=== PATIENT | female | born 1985 | race Caucasian/White ===

== ENCOUNTER 2016-07-11 06:43 | Inpatient (IN) | payer MEDICAID ==
[~2016-07-11] VITALS: Ht 165.1 cm; Wt 79.8 kg
[2016-07-11] VITALS (11 sets, daily range): BP systolic 106–144; BP diastolic 63–85; Ht 165.1 cm; Wt 79.8 kg
[~2016-07-11 06:43] MED LIST: IBUPROFEN800 MG PO; PERCOCET 10/3251 TA1 PO; PRENATAL COMPLE1 TAB PO; VALTREX1000 MG PO
[2016-07-11] MEDS ORDERED: FERROUS SULFAT325 MG PO (07:25)
[2016-07-11] MEDS ORDERED: VALTREX500 MG PO (07:26)
[2016-07-11] MEDS ORDERED: TYLENOL PM1 TAB PO (07:26)
[2016-07-11] MEDS ORDERED: PERCOCET 5-3251 TAB PO (07:27)
[2016-07-11 07:55] LABS: HEMATOCRIT 36.1 % (36.0-48.0); MCH 29.9 pg (26.0-34.0); MCHC 33.2 g/dL (31.0-37.0); RBC 4.01 10x6/uL (4.00-5.40); RDW 19.1 % (11.5-14.5); WBC 11.1 10x3/uL (4.8-10.8)
[2016-07-11 08:00] LABS: UDS - AMPHET NEGATIVE QUAL (NEGATIVE); UDS - BARB NEGATIVE QUAL (NEGATIVE); UDS - BENZO NEGATIVE QUAL (NEGATIVE); UDS - COCAINE NEGATIVE QUAL (NEGATIVE); UDS - METH NEGATIVE QUAL (NEGATIVE); UDS - OPIATE NEGATIVE QUAL (NEGATIVE); UDS - PCP NEGATIVE QUAL (NEGATIVE); UDS - THC NEGATIVE QUAL (NEGATIVE)
[2016-07-11 08:29] LABS: APPEARANCE CLEAR (CLEAR); BILIRUBIN NEGATIVE (NEGATIVE); COLOR YELLOW (YELLOW); GLUCOSE NEGATIVE (NEGATIVE); KETONE MODERATE mg/dL (NEGATIVE); LEUKOCYTE ESTERASE TRACE (NEGATIVE); NITRITE NEGATIVE (NEGATIVE); PROTEIN NEGATIVE (NEGATIVE); SPECIFIC GRAVITY 1.015 (1.005-1.020); UROBILINOGEN NORMAL (NORMAL)
[2016-07-11 08:36] LABS: BACTERIA MODERATE /hpf (NONE SEEN); EPITHELIAL CELLS 0-5 /hpf (0-5); MUCUS <1+ /lpf (NONE SEEN); WHITE CELLS - URINE RARE /hpf (0-5)
--- NOTE | 2016-07-11 11:00 | NUR ---
PT WAS RECEIVED FROM [employer] AND TRADES WORKERS. PT IS AWAKE AND ALERT. LUNGS- CLEAR. HEART- RRR. ABD WITH TENDERNESS. BIKINI LINE INCISION WITH STERI STRIPS INTACT. ICE PACK APPLIED. ALBERTO CATH IN PLACE. PAD WITH SMALL LOCIA RUBRA. EX SCD'S INTACT. NO EDEMA. IV LEFT WRIST INTACT. PATENT WITH LR WITH PIT INFUSING AT 125 CC. HR. DEMEROL SPECIFICATION WRITER INITIATED. BED IS LOLW, CALL LIGHT IN REACH AND SIDE RAILS UP X 2. FAMILY AT BEDSIDE.
--- NOTE | 2016-07-11 11:37 | NUR ---
PT REQUESTED SOMETHING TO EAT. WOULD LIKE A POPSICLE AND A SPRITE. PTS PAIN IS STILL PRETTY INTENSE SHE STATES.
--- NOTE | 2016-07-11 12:30 | OP ---
PATIENT NAME: AMBER RIOS MEDICAL RECORD: [id number] :86 LOCATION:[id number] ADMISSION DATE:07/11/16 SURGEON: KATHY WESTON MD DATE OF OPERATION: 07/11/2016 PREOPERATIVE DIAGNOSES: A 39-week gestation and previous section. PROCEDURE: Repeat low transverse section. ANESTHESIA: Spinal. SURGEON: Kathy Weston MD FINDINGS: A 7 pound and 0.8 ounce male in cephalic presentation with meconium-stained fluid, 8 and 9 Apgars. ESTIMATED BLOOD LOSS: 800 cc. COMPLICATIONS OF SURGERY: None. OPERATIVE NOTE: The patient was taken to the OR and under adequate spinal anesthesia, prepped and draped in the usual manner for abdominal procedures. A transverse incision was made in the lower abdomen and extended in a Pfannenstiel manner through subcutaneous tissue, fascia, dividing muscles in the midline. Peritoneum elevated and incised and this incision extended from the symphysis pubis to within 4 cm of the umbilicus, avoiding the bladder and abdominal organs. A transverse incision was then made in the lower uterine segment and infant was delivered through the uteroabdominal incision without difficulty. Meconium stained fluid was encountered. Infant was thoroughly suctioned, cord doubly clamped and ligated and the infant handed to the waiting nursery personnel. Placenta was removed manually. The uterus was closed in two layers, first layer a running interlocking #1 chromic suture, second layer an imbricating #1 suture. Pelvis was copiously irrigated and suctioned and hemostasis confirmed. Olivia was applied to the lower uterine segment incision. The fascial layer was closed in a running noninterlocking #1 PDS loop suture. Skin incision reapproximated using a subcuticular 2-0 plain gut suture. Dermabond was applied. Steri-Strip dressing applied and the patient went to recovery area in good condition. TRANSINT:[id number] Voice Confirmation ID: [id number] DOCUMENT ID: [id number] KATHY WESTON MD at 1230 CC: [id number] DICTATION DATE: 07/11/16 1032 SCRIPT GIRL: 07/11/16 1045 [place] [address]
--- NOTE | 2016-07-11 12:49 | NUR ---
NICODERM PATCH 7 MG PLACED POSTERIOR LEFT SHOULDER. PT OFFERS NO COMPLAINTS.
--- NOTE | 2016-07-11 13:15 | NUR ---
PT IS LYING IN BED. STATES THAT HER PAIN IS ON HER RIGHT SIDE OF HER INCISION. INCISION LOOKED AT. CLEAN, DRY AND INTACT. PT STATES THAT IT FELT BETTER HER SKIN AT SKIN FOLD. REMY WITH 275 CC.
--- NOTE | 2016-07-11 13:50 | NUR ---
PT RESTING IN BED. HER MOTHER IS AT BEDSIDE. PT OFFERS NO COMPLAINTS AT THIS TIME.
--- NOTE | 2016-07-11 14:10 | NUR ---
REQUESTED THAT BABY GO TO NURSERY SO SHE CAN TAKE A NAP. TOOK BABY TO NURSERY.
--- NOTE | 2016-07-11 15:04 | NUR ---
PT REQUESTEDE A POPSICLE. NO COMPLAINTS.
--- NOTE | 2016-07-11 16:04 | NUR ---
PT IS LYING IN BED. JAREK PAD AND BED PADS CHANGED. MODERATE LOCIA RUBRA. PT CLEANED WITH WARM WASH CLOTHES. ALBERTO CATH INTACT. SCD'S INTACT. IV PATENT. BED IS LOW, SIDE RAILS UP X 2 AND CALL LIGHT IN REACH.
--- NOTE | 2016-07-11 17:20 | NUR ---
PT REQUEST BABY GO BACK TO NURSERY SO SHE CAN REST. DEMEROL BOTTLE ASSEMBLER CHANGED OUT. ALBERTO INTACT. URINE OUTPUT IS 900 CC CATRINA COLORED URINE. INTAKE IV- 767 AND BOTTLE ASSEMBLER 29. IV PATENT LEFT FOREARM. SCD'S INTACT. BED IS LOW, SIDE RAILS UP X 2 AND CALL LIGHT IN REACH. PT OFFERS NO COMPLAINTS.
--- NOTE | 2016-07-11 19:10 | NUR ---
ASSESSMENT PER FLOW SHEET, VS OBTAINED, IV IN LEFT FA INTACT WITH NO REDNESS OR EDEMA INFUSING VIA PUMP NS WITH PITOCIN AT 125 ML/HR, DEMEROL ANIMAL BOUNTY HUNTER TO DELIVER 10MG/10MINS PER PT'S DEMAND FOR PAIN CONTROL, PT RATES INC PAIN 2/10, FF, ML, 2/U, LIGHT BLEEDING NOTED WITH NO CLOTS, BIKINI INC WITH STERI STRIPS CDI WITH NO DRAINAGE NOTED, FRESH ICE PACK TO ABD, ALBERTO CATH SECURED TO LEG WITH STATLOCK, EMPTIED 350 MLS OF CLEAR YELLOW URINE FROM ALBERTO CHAMBER TO ALBERTO BAG, PT REPORTS FLATUS, PT INST ON AND DEMONSTRATED INCENTIVE SPIROMETER, SCD'S ON AND WORKING PROPERLY, PT REPOSITONED TO RIGHT SIDE WITH PILLOW BEHIND BACK AND BETWEEN KNEES FOR COMFORT AND SUPPORT, FRESH LEMON DEERING SERVED, PT READY TO GET SOME REST, BABY TO NSY VIA OPEN CRIB CART PER THIS RN, PT DENIES FURTHER NEEDS
--- NOTE | 2016-07-11 20:30 | NUR ---
PT VISITING WITH MOM, DENIES NEEDS AT THIS TIME
--- NOTE | 2016-07-11 21:35 | NUR ---
PT'S MOM AT TREATMENT SUPERVISOR, REPORTS PT "HAD A GUSH", THIS RN TO ROOM, BLEEDING NOTED TO BE MOD, JAREK CARE DONE WITH WET WARM WASH CLOTHS, BLUE CHUX AND JAREK PAD CHANGED, ALBERTO CATH EMPTIED, PT REPOSITIONED TO LEFT SIDE WITH PILLOW BEHIND BACK AND BETWEEN KNEES FOR COMFORT AND SUPPORT, MOM SERVES PT COLA, PT RATES INC PAIN 07/10, STATES "I REALLY FEEL BETTER NOW", PT DENIES FURTHER NEEDS, TRASH REMOVED
--- NOTE | 2016-07-11 22:36 | NUR ---
BABY TO ROOM VIA OPEN CRIB CART PER TRIHN HARRISON RN, PT SITS UP IN BED, BABY TO PT'S ARMS, DENIES NEEDS AT THIS TIME, PT'S MOM AT BEDSIDE
[2016-07-12 00:05] VITALS: BP 107/66
--- NOTE | 2016-07-12 00:05 | NUR ---
PT AWAKE, VS OBTAINED, PUMP CLEARED, LITE BLEEDING NOTED WITH NO CLOTS, FRESH ICE PACK TO ABD, PT C/O LEFT SHOULDER PAIN, WARM BLANKET APPLIED, SCD'S CONTINUE ON AND WORKING PROPERLY, PT DENIES NEEDS AT THIS TIME, STATES "I'M GOING TO TRY AND GET SOME SLEEP", BABY TO NSY VIA OPEN CRIB CART PER THIS RN, PT DENIES FURTHER NEEDS, PT'S MOM AT BEDSIDE
--- NOTE | 2016-07-12 01:14 | NUR ---
NEW VIAL OF DEMEROL TO GI PHYSICIAN, SEE EMAR, PT DENIES NEEDS AT THIS TIME, PTS MOM AT BEDSIDE
--- NOTE | 2016-07-12 02:00 | NUR ---
PT RESTING WITH EYES CLOSED, RESP QUIET, NO DISTRESS NOTED, LEFT UNDISTURBED AT THIS TIME
[2016-07-12 04:30] VITALS: BP 119/62
--- NOTE | 2016-07-12 04:30 | NUR ---
PT AWAKE, VS OBTAINED, I&O'S COLLECTED, JAREK CARE DONE WITH WET WARM WASH CLOTH, BLUE CHUX AND JAREK PAD CHANGED, LIGHT BLEEDING NOTED WITH NO CLOTS, FRESH ICE PACK TO ABD, PT REQUESTED AND SERVED LEMON KASAAN SODA, PT RATES BACK AND SHOULDER PAIN 3/10, PUSHES ORTHOPEDIC PHYSICIAN BUTTON AT THIS TIME, SCD'S CONTINUE ON AND WORKING PROPERLY, PT DENIES FURTHER NEEDS
[2016-07-12 05:15] LABS: RAPID PLASMA REAGIN Non Reactive (Non Reactive)
[2016-07-12 06:21] LABS: HEMOGLOBIN 12.4 g/dL (12-16); MCHC 31.8 g/dL (31.0-37.0); MCV 91.3 fL (80.0-100.0); MEAN PLATELET VOLUME 11.2 fL (7.4-10.4); RBC 4.27 10x6/uL (4.00-5.40); RDW 19.2 % (11.5-14.5)
[2016-07-12 06:32] LABS: WBC 16.1 10x3/uL (4.8-10.8)
--- NOTE | 2016-07-12 06:35 | NUR ---
NEW BAG OF NS WITH PITOCIN HUNG VIA PUMP INFUSING AT 125 ML/HR, PT DENIES NEEDS AT THIS TIME
--- NOTE | 2016-07-12 07:00 | NUR ---
SHIFT REPORT TO DAY SHIFT
[2016-07-12 07:30] VITALS: BP 119/83; BP 124/67
--- NOTE | 2016-07-12 07:30 | NUR ---
PT RECEIVED LYING IN BED. VSS. RATES PAIN 7 ON SCALE OF 0-10. DR. WESTON TO BEDSIDE. REVIEWED NEW ORDERS. PT DENIES NEEDS AT THIS TIME. BED IN LOWEST POSITION. PHONE AND CALL LIGHT WITHIN REACH. SRU X2.
--- NOTE | 2016-07-12 08:00 | NUR ---
PT IS DOING WELL THIS AM. SHE IS AWAKE AND ALERT. HEART- RRR LUNGS- CLEAR. ABDOMEN- SOFT WITH TENDERNESS. BIKINI LINE INCISION WITH STERI STRIPS. FUNDUS FIRM AT U 1. IV PATENT. ALBERTO INTACT.
--- NOTE | 2016-07-12 08:15 | NUR ---
RECEIVED A PHONE CALL FROM CLAYTON ZARAGOZA IN OR TO GO AHEAD AND GIVE HER PRE OP MEDS.
--- NOTE | 2016-07-12 08:57 | NUR ---
PT LYING IN BED. SALINE LOCKED IV AND REMOVED CATHETER. PT REQUESTS SPRITE AND A CUP OF ICE. PT RATES PAIN 6 ON SCALE OF 0-10. DENIES FURTHER NEEDS AT THIS TIME. SRU X2. PHONE AND CALL LIGHT WITHIN REACH. BED IN LOWEST POSITION.
--- NOTE | 2016-07-12 09:45 | NUR ---
PT SITTING UP IN BED FEEDING . RATES PAIN 5 ON SCALE OF 0-10. ADMINISTERED PERCOCET PO. AND APPLIED NEW NICODERM PATCH TO RIGHT SHOULDER AFTER REMOVING OLD PATCH. PT DENIES FURTHER NEEDS AT THIS TIME. BED IN LOWEST POSITION. PHONE AND CALL LIGHT WITHIN REACH. SRU X2.
--- NOTE | 2016-07-12 10:06 | NUR ---
PT RESTING QUIETLY WITH INFANT IN ROOM. REASSESSED PAIN LEVEL. PT RATES PAIN 0 ON SCALE OF 0-10. DENIES NEEDS AT THIS TIME. SRU X2. BED IN LOWEST POSITION. PHONE AND CALL LIGHT WITHIN REACH.
--- NOTE | 2016-07-12 10:20 | NUR ---
PT LYING IN BED WITH ON CHEST. DENIES NEEDS AT THIS TIME. BED IN LOWEST POSITION. PHONE AND CALL LIGHT WITHIN REACH. SRU X2.
--- NOTE | 2016-07-12 10:50 | NUR ---
PT LYING IN BED. REQUESTS TO GET UP AND USE RESTROOM. ASSISTED PT TO RESTROOM. VOIDED 500 ML URINE WITH 3 SMALL CLOTS. PT BACK IN BED WITH SEWING MACHINE MAINTENANCE MECHANIC AT BEDSIDE. DENIES FURTHER NEEDS. BED IN LOWEST POSITION. PHONE AND CALL LIGHT WITHIN REACH. SRU X2.
--- NOTE | 2016-07-12 11:50 | NUR ---
PT REQUESTS TOWELS FOR SHOWER. COVERED SL. DENIES FURTHER NEEDS AT THIS TIME. SRU X2. BED IN LOWEST POSITION. PHONE AND CALL LIGHT WITHIN REACH.
--- NOTE | 2016-07-12 12:09 | NUR ---
RECEIVED ORDER TO SPEAK WITH MOM REGARDING,"HISTORY OF DRUG USE DURING ". I SPOKE WITH AMBER RIOS NAME: NANCY CENTENO FOB: MISHA CENTENO. NELA IS INCARCERATED AT THIS TIME. AMBER STATES THEY ARE NO LONGER TOGETHER AND THEY HAVE ONLY TALKED IN REGARDS TO THEIR CHILDREN. SHE HAS ANOTHER CHILD, EBCKY CENTENO, 02/18/14. HE LIVES WITH HER AND HER SISTER AND HER SISTER'S 2 YR OLD. AMBER STATES THAT SHE LIVES AT [address] [place] [address]. SHE STATES THIS IS PUBLIC HOUSING AND SHE FEELS SAFE THERE. SHE STATES THAT SHE HAS APPLIED FOR PUBLIC HOUSING SO SHE AND HER CHILDREN WILL HAVE A PLACE OF THEIR OWN. SHE STATES THAT MISHA IS THE FATHER OF BOTH HER CHILDREN. PATIENT STATES SHE RECEIVIES FOOD STAMPS AND IS ON WIC. SHE STATES THAT SHE WILL CALL TO GET NEW BABY ON WIC AT DISCHARGE. SHE IS BOTTLE FEEDING AND STATES SHE WILL BE GETTING HER FORMULA FROM WIC. SHE TELLS ME THAT SHE IS A STAY AT HOME MOM. SHE DOES PLAN TO LOOK FOR EMPLOYMENT AFTER SHE IS RELEASED MEDICALLY. AMBER STATES SHE HAS EVERYTHING SHE NEEDS FOR HER . SHE DOES NOT HAVE AN AUTOMOBILE BUT STATES THAT HER SISTER OR MOTHER WILL DRIVE HER TO AND FROM FOLLOW UP APPOINTMENTS WITH PEDI AND HER RESEARCH CENTER PARTNER. PATIENT STATES THAT THERE ARE MULTIPLE STEPS AT HER APARTMENT. SHE PLANS TO POSSIBLY GO TO HER MOTHER'S HOUSE, [place] [place], AT DISCHARGE SINCE THERE ARE NO STEPS THERE. PATIENT'S SISTER, FRANCOIS BRIGGS, MAY DRIVE HER HOME IF HER MOTHER IS NOT AVAILABLE. HER PHONE NUMBER IS [phone]. PATIENT WAS NEGATIVE FOR DRUGS ON ADMIT. SHE DID HOWEVER HAVE A POSITIVE UDS FOR METH IN DECEMBER 2015. I ASKED PATIENT ABOUT HER DRUG USE AND SHE REPLIED, "I AM NOT A REGULAR USER. SHE STATES SHE QUIT WHEN SHE FOUND OUT SHE WAS ." PATIENT REFUSED BLOOD WORK ON 07-05. SHE STATES SHE IS GESTATIONAL DIABETIC AND THAT SHE HAD TO FAST BUT NOTHING WAS BEING DONE ANY DIFFERENT. SHE STATES IT WAS DIFFICULT FOR HER TO FAST AND GET THERE FOR BLOOD WORK. I WILL CALL CPS TO REPORT POSTIVE METH IN DECEMBER WHILE SHE HAD HER 2 YR OLD. CM TO FOLLOW.
--- NOTE | 2016-07-12 13:01 | NUR ---
PT LYING IN BED LOOKING LOVINGLY AT INFANT ON CHEST. PT REQUESTS MEDICATION FOR PAIN. RATES PAIN 8 ON SCALE OF 0-10. ADMINISTERED TORADOL IV. PT DENIES FURTHER NEEDS AT THIS TIME. SRU X2. BED IN LOWEST POSITION. PHONE AND CALL LIGHT WITHIN REACH.
--- NOTE | 2016-07-12 13:52 | NUR ---
PT LYING IN BED WITH MOTHER AT BEDSIDE HOLDING INFANT. PT RATES PAIN 5 ON SCALE OF 0-10. ADMINISTERED NORCO PO. PT REQUESTED A COLA. DENIES OTHER NEEDS AT THIS TIME. BED IN LOWEST POSITION. PHONE AND CALL LIGHT WITHIN REACH. SRU X2.
--- NOTE | 2016-07-12 14:23 | NUR ---
NOTIFIED NURSERY ABOUT PTS CONCERN WITH INFANTS FORMULA.
--- NOTE | 2016-07-12 14:39 | NUR ---
PT LYING IN BED WITH ON CHEST. SMILING AT . REASSESSED PAIN LEVEL. PT RATES PAIN 0 ON SCALE OF 0-10. DENIES FURTHER NEEDS AT THIS TIME. BED IN LOWEST POSITION. PHONE AND CALL LIGHT WITHIN REACH. SRU X2.
--- NOTE | 2016-07-12 15:06 | NUR ---
PT REQUESTED HER BS BE CHECKED. SHE ATE A SONIC CHEESEBURGER AND FRIES AND HOUR AGO. BS WAS 173.
--- NOTE | 2016-07-12 16:30 | NUR ---
PT UP USING THE RESTROOM. NO BLOOD NOTED ON BED PAD OR JAREK PAD. NO FURTHER NEEDS NOTED AT THIS TIME. SRU X2. BED IN LOWEST POSITION. PHONE AND CALL LIGHT WITHIN REACH.
--- NOTE | 2016-07-12 16:40 | NUR ---
PT AMBULATING AROUND UNIT WITH FAMILY MEMBER. WALKED APPROX 100 FT.
--- NOTE | 2016-07-12 16:51 | NUR ---
PT STANDING UP FILLING OUT PAPERWORK. PT ASKED WHEN SHE COULD HAVE PAIN MEDICATION AGAIN. INFORMED PT SHE COULD HAVE A NORCO AT 1800 AND TORADOL AT 1900. PT RATES PAIN 5 ON SCALE OF 0-10. DENIES FURTHER NEEDS AT THIS TIME. SRU X2. BED IN LOWEST POSITION. PHONE AND CALL LIGHT WITHIN REACH.
--- NOTE | 2016-07-12 17:41 | NUR ---
PT SITTING UP IN BED. REQUESTS CHICKEN TENDERS, BELARUSIAN FRIES, AND A COKE INSTEAD OF WHAT CAME ON HER TRAY. CALLED DIETARY AND PUT IN ORDER. PT DENIED FURTHER NEEDS AT THIS TIME. BED IN LOWEST POSITION. PHONE AND CALL LIGHT WITHIN REACH. SRU X2.
--- NOTE | 2016-07-12 18:06 | NUR ---
PT LYING IN BED WITH AND OLDER CHILD. RATES PAIN 6 ON SCALE OF 0-10. ADMINISTERED NORCO PO. PT DENIES FURTHER NEEDS AT THIS TIME. BED IN LOWEST POSITION. SRU X2. PHONE AND CALL LIGHT WITHIN REACH.
--- NOTE | 2016-07-12 18:55 | NUR ---
PT LYING IN BED WITH OLDER CHILD. REASSESSED PAIN. PT RATES PAIN 5 ON SCALE OF 0-10. DENIES FURTHER NEEDS AT THIS TIME. BED IN LOWEST POSITION. SRU X2. PHONE AND CALL LIGHT WITHIN REACH.
--- NOTE | 2016-07-12 19:20 | NUR ---
PM ROUNDS MADE, PT VISITING WITH FAMILY AND FRIENDS, INFORMED PT THAT I WILL RETURN SHORTLY TO DO ASSESSMENT, PT VERBALIZES UNDERSTANDING, DENIES NEEDS AT THIS TIME
[2016-07-12 20:17] VITALS: BP 114/70
--- NOTE | 2016-07-12 20:17 | NUR ---
PAIN 5/10, INCISIONAL BURING, LOWER BACK ACHE, AND ABD CRAMPING INTERMITTENTLY. REQUESTS TORADOL BE GIVEN. MED GIVEN PER ORDER.
--- NOTE | 2016-07-12 20:35 | NUR ---
ASSESSMENT PER FLOW SHEET, SALINE LOCK IN LEFT WRIST INTACT WITH NO REDNESS OR EDEMA, FF, ML, U/1, PT REPORTS LITE BLEEDING WITH NO CLOTS, BIKINI INC WITH STERI STRIPS CDI WITH NO DRAINAGE NOTED, JAREK PAD OVER INC FOR COMFORT AND MOISTURE CONTROL, PT REPORTS FLATUS, NO BM AND VOIDING BY SELF WITH NO DIFFICULTY, PT DENIES NEEDS AT THIS TIME
--- NOTE | 2016-07-12 20:47 | NUR ---
PAIN REASSESSMENT COMPLETED, 08/10. PT UP AMBULATING AROUND ROOM AT THIS TIME. NO ADDITIONAL NEEDS AT THIS TIME.
--- NOTE | 2016-07-12 21:10 | NUR ---
PT AMB IN MIRANDA TO NSY AND BACK TO ROOM, GAIT STEADY, DENIES NEEDS
--- NOTE | 2016-07-12 22:35 | NUR ---
PT VISITING WITH FAMILY MEMBER, ADM PERCOCET PO PER MD ORDERS, SEE EMAR, PT REQUESTED AND SERVED LEMON YUHAAVIATAM SODA, DENIES FURTHER NEEDS
[2016-07-12 23:32] VITALS: BP 109/60
--- NOTE | 2016-07-12 23:32 | NUR ---
PT ICT SECURITY SPECIALIST LIGHT, PT REQUESTED AND SERVED CHRISTIAN GALLAGHER PT GETTING READY FOR BED, BABY TO NSY VIA OPEN CRIB CART PER THIS RN, SCD'S APPLIED AND WORKING PROPERLY, PT DENIES FURTHER NEEDS
--- NOTE | 2016-07-13 00:05 | NUR ---
PT SCRIPT DEVELOPER LIGHT, PT INQUIRES ABOUT PAIN MED, INFORMED PT WHEN PAIN MED AND MOTRIN WAS DUE AND THAT I WILL ADM AT THAT TIME, PT VERBALIZES UNDERSTANDING, DENIES FURTHER NEEDS
--- NOTE | 2016-07-13 02:36 | NUR ---
UPON ENTERING ROOM, PT IS JUST GETTING BACK INTO BED, REPORTS VOIDING WITH NO DIFFICULTY, SCD'S REAPPLIED AND WORKING PROPERLY, ADM MOTRIN AND PERCOCET PO PER MD ORDERS, SEE EMAR, REQUESTED AND SERVED CHRISTIAN GALLAGHER, DENIES FURTHER NEEDS
--- NOTE | 2016-07-13 04:23 | NUR ---
PT RESTING WITH EYES CLOSED, RESP QUIET, NO DISTRESS NOTED, LEFT UNDISTURBED AT THIS TIME
--- NOTE | 2016-07-13 06:41 | NUR ---
PT RESTING WITH EYES CLOSED, RESP QUIET, NO DISTRESS NOTED, LEFT UNDISTURBED AT THIS TIME
--- NOTE | 2016-07-13 07:00 | NUR ---
SHIFT REPORT TO DAY SHIFT
--- NOTE | 2016-07-13 07:30 | NUR ---
RECEIVED PT LYING IN BED WITH INFANT AT BEDSIDE. PT DENIES NEEDS AT THIS TIME. SRU X2. BED IN LOWEST POSITION. PHONE AND CALL LIGHT WITHIN REACH.
--- NOTE | 2016-07-13 08:00 | NUR ---
PT STANDING UP LOOKING AT IN B[place]ET. REASSESSED PTS PAIN LEVEL. PT RATES PAIN 8 ON SCALE OF 0-10. ADMINISTERED MOTRIN 600 MG PO. INFORMED PT WE WOULD BRING IN A DULCOLAX SUPPOSITORY WHEN PHARMACY BRINGS IT TO HELP WITH GAS PAINS. ASSISTED PT BACK TO BED. PT REQUESTED A CUP OF ICE. DENIES FURTHER NEEDS AT THIS TIME. SRU X2. PHONE AND CALL LIGHT WITHIN REACH.
--- NOTE | 2016-07-13 08:40 | NUR ---
PT LYING IN BED. ADMINISTERED MYLICON GAS TAB. INFORMED PT I WOULD BRING IN THE DULCOLAX SUPPOSITORY WHEN WE RECEIVED IT FROM PHARMACY. PT DENIES FURTHER NEEDS AT THIS TIME. BED IN LOWEST POSITION. SRU X2. PHONE AND CALL LIGHT WITHIN REACH.
--- NOTE | 2016-07-13 08:53 | NUR ---
PT LYING IN BED. ADMINISTERED DULCOLAX SUPPOSITORY. PT TOLERATED WELL. DENIES FURTHER NEEDS AT THIS TIME. SRU X2. PHONE AND CALL LIGHT WITHIN REACH. BED IN LOWEST POSITION.
--- NOTE | 2016-07-13 09:10 | NUR ---
PT LYING ON RIGHT SIDE WITH AT BEDSIDE. REMOVED OLD NICODERM PATCH FROM RIGHT SHOULDER AND PLACED NEW NICODERM PATCH ON LEFT SHOULDER. PT DENIES NEEDS AT THIS TIME. BED IN LOWEST POSITION. PHONE AND CALL LIGHT WITHIN REACH. SRU X2.
[2016-07-13 10:00] VITALS: BP 134/79
--- NOTE | 2016-07-13 10:21 | NUR ---
PT LYING IN BED EYES CLOSED RESTING QUIETLY. NO NEEDS NOTED AT THIS TIME. SRU X2. PHONE AND CALL LIGHT WITHIN REACH. BED IN LOWEST POSITION.
--- NOTE | 2016-07-13 11:45 | NUR ---
PT SITTING UP IN BED. REMOVED IV LEFT WRIST. CATHETER INTACT. PT TOLERATED WELL. PT REQUESTS PAIN MEDICATION. RATES PAIN 5 ON SCALE OF 0-10. ADMINISTERED NORCO PO. REQUESTS CUP OF ICE. DENIES FURTHER NEEDS AT THIS TIME. BED IN LOWEST POSITION. PHONE AND CALL LIGHT WITHIN REACH. SRU X2.
--- NOTE | 2016-07-13 12:35 | NUR ---
PT RESTING QUIETLY WITH EYES. CLOSED. NO NEEDS NOTED AT THIS TIME. BED IN LOWEST POSITION. SRU X2. PHONE AND CALL LIGHT WITHIN REACH.
[2016-07-13] MEDS ORDERED: PERCOCET 5-3251 TAB PO (12:42)
[2016-07-13] MEDS ORDERED: IBUPROFEN600 MG PO (12:43)
--- NOTE | 2016-07-13 13:27 | NUR ---
* Is the patient Alert and Oriented? Yes 0 * ADLs Independent 0 * Additional services required to return to the preadmission environment? No 0 * Can the patient safely return to the preadmission environment? Yes 0 * Has this patient been hospitalized within the prior 30 days at any hospital? No 0
--- NOTE | 2016-07-13 13:55 | NUR ---
NURSERY NURSE IN ROOM WITH PT. PT DENIES NEEDS AT THIS TIME. SRU X2. BED IN LOWEST POSITION. PHONE AND CALL LIGHT WITHIN REACH.
--- NOTE | 2016-07-13 14:06 | NUR ---
PT REQUESTS PAIN MEDICATION. RATES PAIN 6 ON SCALE OF 0-10. REQUESTS COLA. DENIES FURTHER NEEDS. BED IN LOWEST POSTION. PHONE AND CALL LIGHT WITHIN REACH. SRU X2.
--- NOTE | 2016-07-13 14:48 | NUR ---
PT DISCHARGED HOME VIA WHEELCHAIR WITH FAMILY MEMBER.
== END 2016-07-13 14:48 | disposition home or self-care (01) | DRG 766 ==
LOC: D.LD 06:43 → D.WS 06:43 → D.LD 08:45 → D.WS 10:36
PROVIDERS: ADMIT Obstetrics & Gynecology
PROC: 10D00Z1 Extraction of Products of Conception, Low, Open Approach (ICD-10-PCS; principal; 2016-07-11 08:45)
DX: O34.211 Maternal care for low transverse scar from previous cesarean delivery (principal); O77.0 Labor and delivery complicated by meconium in amniotic fluid; Z3A.39 39 weeks gestation of pregnancy; Z37.0 Single live birth

== ENCOUNTER 2017-12-20 15:50 | Emergency (ER) | payer MEDICAID ==
[~2017-12-20] VITALS: Ht 165.1 cm; Wt 61.4 kg
[~2017-12-20 15:50] MED LIST changes: +FERROUS SULFAT325 MG PO; +IBUPROFEN600 MG PO; +PERCOCET 5-3251 TAB PO; +TYLENOL PM1 TAB PO; +VALTREX500 MG PO
[2017-12-20 16:30] VITALS: Ht 165.1 cm; Wt 61.4 kg
[2017-12-20 17:21] LABS: APPEARANCE CLEAR (CLEAR); BILIRUBIN NEGATIVE (NEGATIVE); COLOR YELLOW (YELLOW); GLUCOSE NEGATIVE (NEGATIVE); KETONE NEGATIVE (NEGATIVE); NITRITE NEGATIVE (NEGATIVE); PROTEIN NEGATIVE (NEGATIVE); UROBILINOGEN NORMAL (NORMAL)
[2017-12-20 17:23] LABS: BACTERIA MANY /hpf (NONE SEEN); EPITHELIAL CELLS 0-5 /hpf (0-5); MUCUS <1+ /lpf (NONE SEEN); RED CELLS - URINE 0-5 /hpf (0-5)
[2017-12-20 19:02] LABS: BASOPHILS 0.3 % (0-2); EOSINOPHILS 2.3 % (0-7); HEMATOCRIT 36.5 % (36.0-48.0); IMMATURE GRANULOCYTES 0.3 % (0-5); LYMPHOCYTES 21.9 % (15-50); MCH 29.7 pg (26.0-34.0); MCHC 32.9 g/dL (31.0-37.0); MCV 90.3 fL (80.0-100.0); MEAN PLATELET VOLUME 10.7 fL (7.4-10.4); MONOCYTES 9.6 % (2-11); NEUTROPHILS 65.6 % (40-80); RBC 4.04 10x6/uL (4.00-5.40); RDW 13.2 % (11.5-14.5)
[2017-12-20 19:04] LABS: PLATELET COUNT 256 10x3/uL (130-400)
[2017-12-20 19:20] LABS: ALKALINE PHOSPHATASE 90 U/L (46-116); ALT (SGPT) 15 U/L (10-68); AMYLASE - SERUM 26 U/L (25-115); BILIRUBIN - TOTAL 0.11 mg/dL (0.2-1.3); CALC OSMOLALITY 281 mosm/kg (275-300); CALCIUM 8.3 mg/dL (8.5-10.1); CARBON DIOXIDE 28.9 mmol/L (21.0-32.0); CHLORIDE - SERUM 104 mmol/L (98-107); CREATININE - SERUM 0.9 mg/dL (0.6-1.3); GLUCOSE 110 mg/dL (74-106); LIPASE 90 U/L (73-393); POTASSIUM - SERUM 3.6 mmol/L (3.5-5.1); SODIUM 141 mmol/L (136-145); UREA NITROGEN 13 mg/dL (7-18); eGFR NON AFRICAN AMERICAN 78 mL/min (90-120)
[2017-12-20 21:47] LABS: HCG SERUM NEGATIVE (NEGATIVE)
[2017-12-20] MEDS ORDERED: MACROBID100 MG PO (23:24)
[2017-12-20] MEDS ORDERED: FLAGYL500 MG PO (23:24)
[2017-12-21 01:14] VITALS: BP 122/73
== END 2017-12-20 23:52 | disposition home or self-care (01) ==
LOC: D.ER 15:50
PROVIDERS: Emergency Medicine; Family Medicine
DX: N39.0 Urinary tract infection, site not specified (principal); N76.0 Acute vaginitis; B96.89 Other specified bacterial agents as the cause of diseases classified elsewhere; N83.209 Unspecified ovarian cyst, unspecified side; A59.9 Trichomoniasis, unspecified

== ENCOUNTER 2018-09-05 12:02 | Emergency (ER) | payer MEDICAID ==
[~2018-09-05] VITALS: Ht 165.1 cm; Wt 73.3 kg
[~2018-09-05 12:02] MED LIST changes: +FLAGYL500 MG PO; +MACROBID100 MG PO
[2018-09-05 12:12] VITALS: Ht 165.1 cm; Wt 73.3 kg
[2018-09-05] MEDS ORDERED: CLEOCIN HCL300 MG PO (14:56)
[2018-09-05] MEDS ORDERED: VOLTAREN75 MG PO (14:56)
[2018-09-05 15:24] VITALS: BP 124/73
== END 2018-09-05 15:24 | disposition home or self-care (01) ==
LOC: D.ER 12:02
DX: K04.7 Periapical abscess without sinus (principal); K08.89 Other specified disorders of teeth and supporting structures

== ENCOUNTER 2018-12-14 20:03 | Emergency (ER) | payer MEDICAID ==
[~2018-12-14] VITALS: Ht 165.1 cm; Wt 74.8 kg
[~2018-12-14 20:03] MED LIST changes: +CLEOCIN HCL300 MG PO; +VOLTAREN75 MG PO
[2018-12-14 20:16] VITALS: Ht 165.1 cm; Wt 74.8 kg
[2018-12-14 20:40] LABS: APPEARANCE CLEAR (CLEAR); BILIRUBIN NEGATIVE (NEGATIVE); COLOR YELLOW (YELLOW); GLUCOSE NEGATIVE (NEGATIVE); HCG URINE NEGATIVE (NEGATIVE); KETONE NEGATIVE (NEGATIVE); NITRITE NEGATIVE (NEGATIVE); PROTEIN NEGATIVE (NEGATIVE); UROBILINOGEN NORMAL (NORMAL)
[2018-12-14 20:42] LABS: BACTERIA NONE SEEN /hpf (NONE SEEN); EPITHELIAL CELLS 0-5 /hpf (0-5); RED CELLS - URINE 0-5 /hpf (0-5); WHITE CELLS - URINE NSEEN /hpf (0-5)
[2018-12-14 20:45] LABS: BASOPHILS 0.2 % (0-2); EOSINOPHILS 0.7 % (0-7); HEMATOCRIT 39.8 % (36.0-48.0); HEMOGLOBIN 13.4 g/dL (12-16); IMMATURE GRANULOCYTES 0.3 % (0-5); LYMPHOCYTES 5.2 % (15-50); MCH 29.6 pg (26.0-34.0); MCHC 33.7 g/dL (31.0-37.0); MCV 88.1 fL (80.0-100.0); MEAN PLATELET VOLUME 10.9 fL (7.4-10.4); MONOCYTES 5.6 % (2-11); PLATELET COUNT 223 10x3/uL (130-400); RBC 4.52 10x6/uL (4.00-5.40); RDW 13.5 % (11.5-14.5); WBC 9.6 10x3/uL (4.8-10.8)
[2018-12-14 21:04] LABS: ALBUMIN 3.7 g/dL (3.4-5.0); ALKALINE PHOSPHATASE 76 U/L (46-116); ALT (SGPT) 15 U/L (10-68); CALC OSMOLALITY 274 mosm/kg (275-300); CARBON DIOXIDE 23.9 mmol/L (21.0-32.0); CHLORIDE - SERUM 104 mmol/L (98-107); CREATININE - SERUM 0.7 mg/dL (0.6-1.3); GLUCOSE 125 mg/dL (74-106); POTASSIUM - SERUM 3.9 mmol/L (3.5-5.1); SODIUM 137 mmol/L (136-145); UREA NITROGEN 13 mg/dL (7-18); eGFR NON AFRICAN AMERICAN > 90 mL/min (90-120)
[2018-12-14 21:05] LABS: AMYLASE - SERUM 34 U/L (25-115); LIPASE 94 U/L (73-393)
[2018-12-14 21:08] LABS: TROPONIN-I < 0.017 ng/mL (0.000-0.060)
[2018-12-14] MEDS ORDERED: ZOFRAN ODT4 MG/UDTAB PO (21:53)
[2018-12-14] MEDS ORDERED: PROVERA10 MG PO (21:53)
[2018-12-14 22:44] VITALS: BP 117/68
== END 2018-12-14 22:44 | disposition home or self-care (01) ==
LOC: D.ER 20:03
PROVIDERS: Family Medicine
DX: N93.9 Abnormal uterine and vaginal bleeding, unspecified (principal); R51 Headache; R11.10 Vomiting, unspecified; R19.7 Diarrhea, unspecified